=== PATIENT | female | born 1960 | race Caucasian/White ===

== ENCOUNTER → 2016-08-19 | Outpatient (CLI) | payer BC ==
[2016-08-19 11:10] LABS: Basophils % (A) 0 %; CH 29.5; Eosinophils # (A) 0.1 k/uL (0-0.7); Eosinophils % (A) 1 %; HCT 43.6 % (34.0-46.0); HDW 2.32; HGB 13.9 gm/dL (11.4-16.0); Luc # (Auto) 0.15; Luc % (Auto) 2; Lymphocytes # (A) 1.7 k/uL (1.0-4.8); Lymphocytes % (A) 27 %; MCH 28.6 pg (25.0-35.0); MCHC 31.8 g/dL (31.0-37.0); MCV 89.9 fL (80.0-100.0); Mean Platelet Volume 7.9; Monocytes # (A) 0.3 k/uL (0-1.0); Monocytes % (A) 5 %; Neutrophils # (A) 4.1 k/uL (1.3-7.7); Neutrophils % (A) 64 %; RBC 4.85 m/uL (3.80-5.40); RDW 12.9 % (11.5-15.5); WBC 6.5 k/uL (3.8-10.6); WBC (Perox) 6.75
[2016-08-19 11:36] LABS: ALT 70 U/L (9-52); AST 45 U/L (14-36); Alkaline Phosphatase 86 U/L (38-126); Anion Gap 9 mmol/L; Blood Urea Nitrogen 15 mg/dL (7-17); Calcium 9.4 mg/dL (8.4-10.2); Carbon Dioxide 29 mmol/L (22-30); Chloride 104 mmol/L (98-107); Cholesterol 208 mg/dL (<200); Glucose 100 mg/dL (74-99); HDL Cholesterol 41 mg/dL (40-60); Non-African American GFR(MDRD) >60 (>60 ml/min/1.73 sqM); Potassium 5.1 mmol/L (3.5-5.1); Sodium 142 mmol/L (137-145); Total Bilirubin 0.5 mg/dL (0.2-1.3); Total Protein 6.9 g/dL (6.3-8.2); Triglycerides 139 mg/dL (<150)
[2016-08-19 12:19] LABS: Vitamin B12 698 pg/mL (239-931)
== END | disposition home or self-care (01) ==
LOC: LABWHC1 10:30
PROVIDERS: ATTEND Internal Medicine Endocrinology, Diabetes & Metabolism
DX: E11.65 Type 2 diabetes mellitus with hyperglycemia (principal); E53.8 Deficiency of other specified B group vitamins; E03.9 Hypothyroidism, unspecified
CPT/HCPCS: 36415; 80053; 80061; 82043; 82607; 84443; 85025

== ENCOUNTER → 2016-09-10 | Outpatient (CLI) | payer BC ==
--- NOTE | 2016-09-10 17:18 | MR ---
MR brain and cervical spine with and without contrast HISTORY: Neck pain, numbness in arms, blurred vision Multiplanar multisequence and postcontrast images obtained through the brain and cervical spine follo wing 15 cc MultiHance IV. Brain MRI with and without contrast there is no restricted diffusion. Brain signal is maintained. The re is no hemorrhage or hydrocephalus. The corpus callosum, cervical medullary junction, cerebellopont ine angles are normal. There is a partially empty sella. No abnormal enhancement following contrast a dministration. The orbits show symmetric appearance. No significant inflammatory change within the pa ranasal sinuses and mastoid air cells. There are normal vascular flow voids, normal enhancement follo wing contrast administration. IMPRESSION: Normal pre and postcontrast brain MRI Cervical spine MRI with and without contrast cervical cord signal is normal. Cervical medullary junct ion are unremarkable. Cervical vertebral bodies show preserved height and alignment, there is spondyl osis present at C5-6 with associated loss of disc height and signal, minimal endplate discogenic nicholas ow signal change. C2-3: Unremarkable C3-4: There is a central posterior disc herniation which likely contacts anterior cervical cord. No s ignificant central stenosis or foraminal encroachment C4-5: Minimal posterior broad-based disc bulge causes slight anterior mass effect on the thecal sac C5-6: There is posterior extension of endplate disc complex, circumferential extension causes bilater al foraminal encroachment, there is anterior mass effect on the thecal sac, only mild central canal s tenosis. C6-7: Unremarkable C7-T1: Within normal limits There is no abnormal enhancement following contrast administration. IMPRESSION: Degenerative disc disease as described.
== END | disposition home or self-care (01) ==
LOC: RADMRIMAIN 07:04
PROVIDERS: ATTEND Psychiatry & Neurology Neurology
DX: C71.0 Malignant neoplasm of cerebrum, except lobes and ventricles (principal); M50.30 Other cervical disc degeneration, unspecified cervical region
CPT/HCPCS: 70553; 72156; A9577

== ENCOUNTER → 2016-12-01 | Outpatient (CLI) | payer BC ==
[2016-12-01 16:39] LABS: ALT 129 U/L (9-52); AST 70 U/L (14-36); Alkaline Phosphatase 95 U/L (38-126); Anion Gap 12 mmol/L; Blood Urea Nitrogen 12 mg/dL (7-17); Calcium 9.1 mg/dL (8.4-10.2); Carbon Dioxide 28 mmol/L (22-30); Chloride 104 mmol/L (98-107); Glucose 138 mg/dL (74-99); Non-African American GFR(MDRD) >60 (>60 ml/min/1.73 sqM); Potassium 4.2 mmol/L (3.5-5.1); Sodium 144 mmol/L (137-145); Total Bilirubin 0.6 mg/dL (0.2-1.3); Total Protein 7.8 g/dL (6.3-8.2)
== END ==
LOC: LABWHC1 16:08
PROVIDERS: ATTEND Internal Medicine Endocrinology, Diabetes & Metabolism
DX: E11.9 Type 2 diabetes mellitus without complications (principal); E03.8 Other specified hypothyroidism
CPT/HCPCS: 36415; 80053; 84443

== ENCOUNTER → 2017-01-09 | Outpatient (CLI) | payer BC | END | disposition home or self-care (01) | LOC: LABWHC1 07:49 | PROVIDERS: ATTEND Internal Medicine Endocrinology, Diabetes & Metabolism | DX: E03.8 Other specified hypothyroidism (principal) | CPT/HCPCS: 36415; 84443 ==

== ENCOUNTER → 2017-02-03 | Outpatient (CLI) | payer BC ==
[2017-02-03 16:20] LABS: ALT 81 U/L (9-52); AST 58 U/L (14-36); Alkaline Phosphatase 102 U/L (38-126); Anion Gap 12 mmol/L; Blood Urea Nitrogen 13 mg/dL (7-17); Calcium 9.7 mg/dL (8.4-10.2); Carbon Dioxide 25 mmol/L (22-30); Chloride 103 mmol/L (98-107); Glucose 115 mg/dL (74-99); Iron 91 ug/dL (37-170); Non-African American GFR(MDRD) >60 (>60 ml/min/1.73 sqM); Potassium 4.8 mmol/L (3.5-5.1); Sodium 140 mmol/L (137-145); Total Bilirubin 0.7 mg/dL (0.2-1.3); Total Protein 7.5 g/dL (6.3-8.2)
[2017-02-03 16:31] LABS: CH 29.6; CHCM 32.2; HDW 2.34; HGB 14.6 gm/dL (11.4-16.0); MCH 29.4 pg (25.0-35.0); MCHC 31.9 g/dL (31.0-37.0); MCV 92.3 fL (80.0-100.0); RBC 4.98 m/uL (3.80-5.40); RDW 12.8 % (11.5-15.5); WBC 10.5 k/uL (3.8-10.6)
[2017-02-03 21:38] LABS: Hemoglobin A1C 6.1 % (4.2-6.1)
[2017-02-04 16:20] LABS: Hepatitis B Surface Ag Index 0.04
[2017-02-04 16:26] LABS: Hepatitis B Core IgM Index 0.02
[2017-02-04 16:37] LABS: Hepatitis C Virus IgG Ab Negative (Negative); Hepatitis C Virus IgG Index 0.02
== END | disposition home or self-care (01) ==
LOC: LABWHC1 09:30
PROVIDERS: ATTEND Internal Medicine Endocrinology, Diabetes & Metabolism
DX: E03.8 Other specified hypothyroidism (principal); D51.9 Vitamin B12 deficiency anemia, unspecified; E11.9 Type 2 diabetes mellitus without complications; R53.83 Other fatigue; E03.9 Hypothyroidism, unspecified; R94.5 Abnormal results of liver function studies
CPT/HCPCS: 36415; 80053; 80074; 82607; 83036; 83540; 83605; 84439; 84443; 84481; 85027

== ENCOUNTER → 2017-03-11 | Outpatient (CLI) | payer BC ==
[2017-03-11 13:13] LABS: Prolactin 8.8 ng/mL (3.0-18.6)
== END | disposition home or self-care (01) ==
LOC: LABWHC1 10:00
PROVIDERS: ATTEND Internal Medicine Endocrinology, Diabetes & Metabolism
DX: R53.83 Other fatigue (principal)
CPT/HCPCS: 36415; 82533; 84146

== ENCOUNTER → 2017-03-16 | Outpatient (CLI) | payer BC ==
[2017-03-16 10:52] LABS: Bilirubin, Delta 0.3 mg/dL (0.0-0.2); Total Bilirubin 0.7 mg/dL (0.2-1.3); Total Protein 7.3 g/dL (6.3-8.2)
[2017-03-16 16:12] LABS: ANA w/Reflex to Titer NEGATIVE (NEGATIVE)
== END | disposition home or self-care (01) ==
LOC: LABWHC1 09:51
PROVIDERS: ATTEND Physician Assistant
DX: R79.89 Other specified abnormal findings of blood chemistry (principal)
CPT/HCPCS: 36415; 80076; 82103; 84165; 86038

== ENCOUNTER → 2017-10-05 | Outpatient (CLI) | payer BC ==
[2017-10-05 10:59] LABS: ALT 189 U/L (9-52); AST 186 U/L (14-36); Albumin 4.5 g/dL (3.5-5.0); Alkaline Phosphatase 179 U/L (38-126); Anion Gap 12 mmol/L; Blood Urea Nitrogen 10 mg/dL (7-17); Calcium 9.7 mg/dL (8.4-10.2); Carbon Dioxide 26 mmol/L (22-30); Chloride 101 mmol/L (98-107); Cholesterol 305 mg/dL (<200); Glucose 283 mg/dL (74-99); HDL Cholesterol 50 mg/dL (40-60); LDL Cholesterol,Calculated 205 mg/dL (0-99); Potassium 4.8 mmol/L (3.5-5.1); Sodium 139 mmol/L (137-145); Total Bilirubin 0.9 mg/dL (0.2-1.3); Total Protein 7.7 g/dL (6.3-8.2); Triglycerides 251 mg/dL (<150)
[2017-10-05 18:24] LABS: Hemoglobin A1C 10.9 % (4.0-6.0)
== END | disposition home or self-care (01) ==
LOC: LABWHC1 10:12
PROVIDERS: ATTEND Internal Medicine Endocrinology, Diabetes & Metabolism
DX: E11.9 Type 2 diabetes mellitus without complications (principal); D51.9 Vitamin B12 deficiency anemia, unspecified; E03.8 Other specified hypothyroidism
CPT/HCPCS: 36415; 80053; 80061; 82043; 82570; 82607; 83036; 84443

== ENCOUNTER → 2017-11-02 | Outpatient (CLI) | payer BC ==
[2017-11-02 11:45] LABS: Albumin 4.4 g/dL (3.5-5.0); Bilirubin, Delta 0.4 mg/dL (0.0-0.2); Bilirubin,Unconjugated 0.3 mg/dL (0.0-1.1); Total Bilirubin 0.7 mg/dL (0.2-1.3); Total Protein 7.6 g/dL (6.3-8.2)
== END | disposition home or self-care (01) ==
LOC: LABWHC1 11:04
PROVIDERS: ATTEND Physician Assistant
DX: R94.5 Abnormal results of liver function studies (principal)
CPT/HCPCS: 36415; 80076

== ENCOUNTER → 2018-03-05 | Outpatient (CLI) | payer BC ==
[2018-03-05 14:29] LABS: Albumin 4.4 g/dL (3.5-5.0); Bilirubin, Delta 0.3 mg/dL (0.0-0.2); Bilirubin,Unconjugated 0.5 mg/dL (0.0-1.1); Total Bilirubin 0.8 mg/dL (0.2-1.3); Total Protein 7.2 g/dL (6.3-8.2)
== END | disposition home or self-care (01) ==
LOC: LABWHC1 13:41
PROVIDERS: ATTEND Physician Assistant
DX: R94.5 Abnormal results of liver function studies (principal)
CPT/HCPCS: 36415; 80076

== ENCOUNTER → 2024-05-11 | Outpatient (CLI) | payer BC ==
--- NOTE | 2024-05-12 12:43 | MR ---
EXAMINATION TYPE: MR knee LT wo con DATE OF EXAM: 05/11/2024 COMPARISON: NONE HISTORY: left knee pain and swelling due to fall in November, lunging over dog. Internal derangement. TECHNIQUE: Multiplanar, multisequence images of the knee is performed without IV contrast. FINDINGS: MEDIAL MENISCUS: Triangular shaped increased signal posterior horn does not definitively extend to ar ticular surface. LATERAL MENISCUS: Anterior and posterior horns are intact without tear. CRUCIATE LIGAMENTS: The anterior and posterior cruciate ligaments are intact and unremarkable. COLLATERAL LIGAMENTS: The medial collateral ligament and lateral collateral ligament complex are inta ct and unremarkable. EXTENSOR MECHANISM: Visualized quadriceps and patellar tendons are intact. EFFUSION: No significant suprapatellar joint effusion. POPLITEAL CYST: No popliteal/cuellar cyst. TRICOMPARTMENT SPACES: Mild tricompartment joint space loss and spurring. CARTILAGE: Tricompartmental articular cartilage is maintained. BONE MARROW SIGNAL: No focal abnormal marrow signal is appreciated. OTHER: No additional significant abnormality is appreciated. IMPRESSION: 1. Mild tricompartment degenerative changes. 2. Probable intrasubstance tear posterior horn of medial meniscus. No definitive full-thickness menis yessy or ligamentous tear. [facility], , 05/12/2024 12:41 PM
== END | disposition home or self-care (01) ==
LOC: RADMRIMAIN 20:00
PROVIDERS: ATTEND Orthopaedic Surgery
DX: M23.92 Unspecified internal derangement of left knee